=== PATIENT | male | born 1970 | race Caucasian/White ===

== ENCOUNTER 2018-08-15 14:49 | Emergency (ER) | payer BC, MEDICAID ==
[~2018-08-15] VITALS: Ht 190.5 cm; Wt 147.4 kg
[~2018-08-15 14:49] MED LIST: Synthroid PO
[2018-08-15 15:03] VITALS: BP_SYST 131
--- NOTE | 2018-08-15 15:07 | NUR ---
Patient to ER bed 8 to gown for evaluation. Side rails up.
--- NOTE | 2018-08-15 15:09 | NUR ---
ER ROBBIN Bautista at bedside examining patient.
--- NOTE | 2018-08-15 15:09 | NUR ---
Patient is awake, alert, and oriented x4. Reports he had a cystoscopy this morning at [address] Bautista, has a follow up exam scheduled for next Wednesday. States he has been unable to urinate since then and has lower abdominal pain. 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
[2018-08-15] MEDS ORDERED: LIDOCAINE VISCOUS 2%, 15 ML UDC MM ONE (16:00)
--- NOTE | 2018-08-15 16:15 | NUR ---
# 16 FR Augustin catheter with use of sterile technique. Immediate return of 450 cc pink urine noted. Leg drainage bag placed below level of bladder. Urine sample collected and sent to lab. Pt tolerated procedure well.
[2018-08-15 16:35] VITALS: BP_SYST 128
--- NOTE | 2018-08-15 16:35 | NUR ---
Patient given written and verbal discharge instructions and verbalizes understanding. ER MD discussed with patient the results and treatment provided. Patient in stable condition. ID arm band removed. Patient educated on pain management and to follow up with PMD. Pain Scale 2/10, patient states it is within tolerable limits. Opportunity for questions provided and answered. Medication side effect fact sheet provided.
== END 2018-08-15 16:35 | disposition home or self-care (01) ==
LOC: SED 14:49
DX: R33.9 Retention of urine, unspecified (principal); I10 Essential (primary) hypertension; E03.9 Hypothyroidism, unspecified
CPT/HCPCS: 51702; 99284; J2001

== ENCOUNTER 2023-03-10 11:08 | Emergency (ER) | payer BC ==
[~2023-03-10] VITALS: Ht 188 cm; Wt 159.7 kg
[2023-03-10 11:16] VITALS: BP_SYST 143; PULSE 63; RESP 20; TEMP 98.2; O2SAT 97
[2023-03-10 11:53] LABS: BASOPHILS % (AUTO) 0.5 % (0.0-2.0); EOSINOPHILS # (AUTO) 0.2 K/uL (0.0-0.4); EOSINOPHILS % (AUTO) 2.5 % (0.0-4.0); HEMATOCRIT 41.8 % (36-54); HEMOGLOBIN 13.6 g/dL (14.0-18.0); LYMPHOCYTES # (AUTO) 1.8 K/uL (1.0-5.5); LYMPHOCYTES % (AUTO) 21.4 % (20.5-51.5); MEAN CORPUSCULAR HEMOGLOBIN 26 pg (27-31); MEAN CORPUSCULAR HGB CONC 32 % (32-36); MEAN CORPUSCULAR VOLUME 79 fL (79.0-98.0); MONOCYTES # (AUTO) 0.6 K/uL (0.0-1.0); MONOCYTES % (AUTO) 7.7 % (1.7-9.3); NEUTROPHILS # (AUTO) 5.8 K/uL (1.8-7.7); NEUTROPHILS % (AUTO) 67.9 % (40.0-70.0); PLATELET COUNT (AUTO) 250 K/uL (130-430); RED BLOOD CELL COUNT(AUTO) 5.27 MIL/uL (4.2-6.2); RED CELL DISTRIBUTION WIDTH 13.7 % (9.0-15.0); WHITE BLOOD COUNT (AUTO) 8.5 K/uL (4.8-10.8)
[2023-03-10 12:08] LABS: ANION GAP 10 (5-15); CALCIUM 8.5 mg/dL (8.4-11.0); CARBON DIOXIDE 26 mmol/L (23-29); CHLORIDE 104 mmol/L (98-107); CREATININE 0.76 mg/dL (0.55-1.30); GFR AFRICAN AMERICAN 140 mL/min (>90); GLUCOSE 100 mg/dL (74-106); POTASSIUM 4.3 mmol/L (3.5-5.1); SODIUM SERUM 140 mmol/L (136-145); UREA NITROGEN, BLOOD 17 mg/dL (8-21)
[2023-03-10 12:12] LABS: GFR NON AFRICAN-AMERICAN 115 mL/min (>90)
[2023-03-10 12:16] LABS: ALANINE AMINOTRANSFERASE 24 U/L (12-78); ALBUMIN 3.8 g/dL (3.4-4.8); ASPARTATE AMINOTRANSFERASE 17 U/L (10-37); TOTAL BILIRUBIN 0.7 mg/dL (0.0-1.0); TOTAL PROTEIN, SERUM 7.4 g/dL (6.4-8.3)
[2023-03-10 13:31] VITALS: BP_SYST 134; PULSE 66; RESP 18; TEMP 98.2; O2SAT 98
== END 2023-03-10 13:32 | disposition home or self-care (01) ==
LOC: SED 11:08
DX: R07.9 Chest pain, unspecified (principal); M79.602 Pain in left arm; I10 Essential (primary) hypertension; Z79.899 Other long term (current) drug therapy
CPT/HCPCS: 36415; 71045; 80053; 83880; 84484; 85025; 93005; 99285